=== PATIENT | male | born 1970 | race Two or more races ===

== ENCOUNTER 2021-12-07 11:26 | Emergency (ER) | payer MEDICAID ==
[~2021-12-07] VITALS: Ht 165.1 cm; Wt 56.7 kg
[2021-12-07 11:40] VITALS: BP 111/80
--- NOTE | 2021-12-07 11:46 | NUR ---
dr calixto at bedside for picc line removal.
--- NOTE | 2021-12-07 11:54 | NUR ---
called [facility], spoke to homero will transfer patient back to facility. vss.
--- NOTE | 2021-12-07 11:59 | NUR ---
transfered back to [facility]. stable condition.
== END 2021-12-07 12:01 | disposition home or self-care (01) ==
LOC: ER 11:29
DX: Z45.2 Encounter for adjustment and management of vascular access device (principal); E11.9 Type 2 diabetes mellitus without complications

== ENCOUNTER 2022-04-27 22:15 | Inpatient (IN) | payer MEDICAID ==
[~2022-04-27] VITALS: Ht 170.2 cm; Wt 54.9 kg
--- NOTE | 2022-04-27 22:25 | NUR ---
JASON FROM [facility] FOR DESATURATION AND TACHYCARDIA. PATIENT WITH TRACHE ATTACHED TO TBAR AT 5LPM SAT 92%. WITH GTUBE. PATIENT IS AAOX1. PLACED COMFORTABLY IN RM 8. VITALS CHECKED.
[2022-04-27] MEDS ORDERED: ONDANSETRON HCL/PF 4 MG/2 ML VIAL IVP ONE (22:30)
--- NOTE | 2022-04-27 22:30 | NUR ---
IV CANNULA G18 INSERTED ON LEFT FA. BLOOD DRAWN AND SENT TO LAB
--- NOTE | 2022-04-27 22:35 | NUR ---
IFC FR16 INSERTED. URINE SPECIMEN SENT TO LAB
--- NOTE | 2022-04-27 22:35 | NUR ---
EKG DONE AT BEDSIDE.
[2022-04-27] MEDS ORDERED: ACETAMINOPHEN 650 MG/SUPP.RECT RC ONE ×2 (22:37→23:00)
[2022-04-27] MEDS ORDERED: ONDANSETRON HCL/PF 4 MG/2 ML VIAL ONE (22:37)
--- NOTE | 2022-04-27 22:38 | NUR ---
COVID SWAB DONE AND SENT TO LAB
--- NOTE | 2022-04-27 22:46 | NUR ---
XRAY AT BEDSIDE
[2022-04-27] MEDS ORDERED: IV NS 0.9% 1,000 ML BAG IV ONE (23:00)
[2022-04-27 23:01] LABS: BASOPHILS % (AUTO) 0.2 % (0.0-2.0); HEMATOCRIT 35 % (39-51); HEMOGLOBIN 11.7 g/dL (13.5-17.5); LYMPHOCYTES # (AUTO) 0.6 K/uL (0.8-4.8); LYMPHOCYTES % (AUTO) 11.9 % (20.0-44.0); MEAN CORPUSCULAR HGB CONC 34 g/dl (31.0-36.0); MEAN CORPUSCULAR VOLUME 93 fL (80-96); MONOCYTES # (AUTO) 0.3 K/uL (0.1-1.30); MONOCYTES % (AUTO) 5.3 % (2.0-12.0); NEUTROPHILS % (AUTO) 82.6 % (43.0-81.0); PLATELET COUNT (AUTO) 351 K/uL (150-450); RED BLOOD CELL COUNT(AUTO) 3.72 MIL/uL (4.5-6.0); WHITE BLOOD COUNT (AUTO) 4.9 K/uL (4.3-11.0)
[2022-04-27 23:19] LABS: CALCIUM, SERUM 9.9 mg/dL (8.5-10.1); CARBON DIOXIDE 31 mmol/L (21-32); CHLORIDE 97 mmol/L (98-107); CREATININE 0.8 mg/dL (0.6-1.3); GLUCOSE 100 mg/dL (74-106); POTASSIUM 4.7 mmol/L (3.5-5.1); SODIUM SERUM 137 mmol/L (136-145); UREA NITROGEN, BLOOD 23 mg/dL (7-18)
--- NOTE | 2022-04-27 23:22 | NUR ---
LACTIC ACID 2.2
[2022-04-27 23:23] LABS: BILIRUBIN,URINE NEGATIVE (NEGATIVE); COLOR,URINE YELLOW (YELLOW); LEUKOCYTE ESTERASE ,URINE NEGATIVE (NEGATIVE); NITRITE, URINE NEGATIVE (NEGATIVE); PROTEIN,URINE NEGATIVE (NEGATIVE); UGLUCOSE NEGATIVE (NEGATIVE)
[2022-04-27] MEDS ORDERED: AZTREONAM 1 G VIAL ONE (23:59)
[2022-04-27] MEDS ORDERED: LEVOFLOXACIN 750 MG /D5W 150ML 150 ML IV ONE (23:59)
[2022-04-28] VITALS: BP 107/63
[2022-04-28] MEDS ORDERED: LEVOFLOXACIN 750 MG /D5W 150ML PIGGYBACK IV ONE
[2022-04-28] MEDS ORDERED: AZTREONAM 1 G in IV NS 0.9% 100 ML IV ONE ×2
--- NOTE | 2022-04-28 00:03 | NUR ---
REPORT GIVEN TO PRINCESS AMIN FOR FABY
[2022-04-28 00:12] LABS: ALANINE AMINOTRANSFERASE 22 U/L (12-78); ALBUMIN 2.6 g/dL (3.4-5.0); ALKALINE PHOSPHATASE 222 U/L (46-116); ASPARTATE AMINOTRANSFERASE 21 U/L (15-37); BILIRUBIN,DIRECT 0.2 mg/dL (0.0-0.2); BILIRUBIN,TOTAL 0.5 mg/dL (0.2-1.0); TOTAL PROTEIN, SERUM 8.6 g/dL (6.4-8.2)
--- NOTE | 2022-04-28 00:43 | NUR ---
TRANSFERRED PT TO 108
--- NOTE | 2022-04-28 00:45 | NUR ---
RN Initial Note Received report from HIGH SCHOOL ASSISTANT FOOTBALL COACH Saqib. Pt arrived to unit via gurney. Pt has eyes open, non-verbal, obtunded. Pt noted to have trach, currently on 4L oxygen, with O2sat 97%; no s/s of resp distress, no SOB, non-labored and equal breathing; appears comfortable. Pt attached to external monitor, currently ST with HR 109. Xiao draining clear and yellow urine; xiao intact and patent; no s/s of leaking noted. Pt noted to have redness on buttocks and wounds on right foot and heel and left heel. IV access LFA 18G intact and patent, flushes easily with no s/s of infiltration. Levofloxacin infusion started and will infuse for 90 minutes. Bed in lowest position, call light within reach, side rails up x3. Will initiate plan of care and continue to monitor throughout the night.
[2022-04-28] MEDS ORDERED: IPRATROPIUM NEB FS 0.5 MG/2.5 ML AMPUL.NEB NEB PRN (01:30)
[2022-04-28] MEDS ORDERED: CEFTRIAXONE 1 G in IV D5W 50 ML IV SCH (01:30)
[2022-04-28] MEDS ORDERED: ALBUTEROL FS 2.5 MG/3 ML VIAL.NEB NEB PRN (01:30)
[2022-04-28] MEDS ORDERED: AZITHROMYCIN 500 MG in IV D5W 250 ML IV SCH (02:30)
[2022-04-28] MEDS ORDERED: METO-295 GT (02:46)
[2022-04-28] MEDS ORDERED: CHLO473M2 MM (02:46)
[2022-04-28] MEDS ORDERED: NA P133E RC (02:46)
[2022-04-28] MEDS ORDERED: ALBU18HF2 INH (02:46)
[2022-04-28] MEDS ORDERED: METF-440 PO (02:46)
[2022-04-28] MEDS ORDERED: FAMO20TA8 PO (02:46)
[2022-04-28] MEDS ORDERED: INSU100V39 SQ (02:46)
[2022-04-28] MEDS ORDERED: PHEN100C4 GT (02:46)
[2022-04-28] MEDS ORDERED: NAPR-1009 GT (02:46)
[2022-04-28] MEDS ORDERED: VIT500LI GT (02:46)
[2022-04-28] MEDS ORDERED: VALP250S4 GT (02:46)
[2022-04-28] MEDS ORDERED: ACET-2605 GT (02:46)
[2022-04-28] MEDS ORDERED: FERR325T23 PO (02:46)
[2022-04-28] MEDS ORDERED: MULT9LIQ9 PO (02:46)
[2022-04-28] MEDS ORDERED: MAGN24002 PO (02:46)
[2022-04-28] MEDS ORDERED: ZINC1CAP3 PO (02:46)
[2022-04-28] MEDS ORDERED: APIX5TAB PO (02:46)
[2022-04-28] MEDS ORDERED: INSU100V7 SQ (02:46)
[2022-04-28] MEDS ORDERED: CLON0.1T GT (02:46)
[2022-04-28] MEDS ORDERED: ONDA-97 PO (02:46)
[2022-04-28] MEDS ORDERED: AMIN30LI2 GT (02:46)
[2022-04-28] MEDS ORDERED: ACET160E36 PO (02:46)
[2022-04-28] MEDS ORDERED: BISA10SU RC (02:46)
[2022-04-28] MEDS ORDERED: CEFTRIAXONE 1 G VIAL ONE (03:23)
[2022-04-28] MEDS ORDERED: AZITHROMYCIN 500 MG VIAL ONE (03:24)
[2022-04-28] MEDS: ALBUTEROL FS 2.5 MG/3 ML VIAL.NEB NEB SCH ×6 (03:30→23:28)
[2022-04-28] MEDS: IPRATROPIUM NEB FS 0.5 MG/2.5 ML AMPUL.NEB NEB SCH ×6 (03:30→23:28)
[2022-04-28 04:00] VITALS: BP 99/60
[2022-04-28] MEDS: IV D5/0.45 NACL 1,000 ML IV PRN (04:22)
[2022-04-28 07:14] LABS: BASOPHILS % (AUTO) 0.1 % (0.0-2.0); HEMATOCRIT 30 % (39-51); HEMOGLOBIN 9.8 g/dL (13.5-17.5); LYMPHOCYTES # (AUTO) 0.6 K/uL (0.8-4.8); LYMPHOCYTES % (AUTO) 8.6 % (20.0-44.0); MEAN CORPUSCULAR HGB CONC 33 g/dl (31.0-36.0); MEAN CORPUSCULAR VOLUME 96 fL (80-96); MONOCYTES # (AUTO) 0.8 K/uL (0.1-1.30); MONOCYTES % (AUTO) 10.7 % (2.0-12.0); NEUTROPHILS # (AUTO) 5.9 K/uL (1.8-8.9); NEUTROPHILS % (AUTO) 80.6 % (43.0-81.0); PLATELET COUNT (AUTO) 259 K/uL (150-450); WHITE BLOOD COUNT (AUTO) 7.4 K/uL (4.3-11.0)
--- NOTE | 2022-04-28 07:26 | NUR ---
flexible machining system machinist Closing Note Pt remains in bed obtunded, opens eyes, non-verbal. Pt remains on T-piece 4L oxygen with humidifier, O2sat 97%-100%; no s/s of resp distress, no SOB, non-labored and equal breathing. Pt attached to external monitor, currently ST with HR ranging from 108-120. Perez remains C/D/I/P, draining clear and yellow urine. Wound consult ordered for wounds on right and left heel and right foot; applied mepilex to wounds. IV access LFA 18G intact and patent, flushes easily with no s/s of infiltration.Infused Levofloxacin, azithromycin, and ceftriaxone throughout the night; also currently has D5 1/2 NS running at 70 ml/hr. Bed in lowest position, call light within reach, side rails up x3. Will endorse to dayshift nurse to continue care.
--- NOTE | 2022-04-28 07:30 | NUR ---
RN OPENING NOTE PATIENT IS IN BED, OBTUNDED, OPEN EYES TO TOUCH, AND NON VERBAL. WITH OXYGEN VIA T-PIECE AT 4 L/MIN, OXYGEN SATURATION AT 99%. SINUS TACHYCARDIA AT 103 BPM ON FIELD SALES CONSULTANT. WITH LEFT FOREARM GAUGE 18 IV LINE INFUSING WITH D5 1/2 NS AT 70 ML/HR, INTACT AND PATENT. NO NOTED INFILTRATION OR PHLEBITIS ON IV INSERTION SITE. WITH NOBLE CATHETER ATTACHED TO URINE BAG DRAINING TO A CLEAR, YELLOW COLORED URINE. BREATHING UNLABORED AND NOT IN ANY FORM OF DISTRESS. BED IS LOCKED IN LOWEST POSITION, 3 SIDE RAILS UP, CALL LIGHT WITHIN REACH. WILL CONTINUE TO MONITOR THROUGHOUT SHIFT.
[2022-04-28 07:46] LABS: BILIRUBIN,TOTAL 0.5 mg/dL (0.2-1.0); POTASSIUM 4.3 mmol/L (3.5-5.1); TOTAL PROTEIN, SERUM 7.3 g/dL (6.4-8.2)
[2022-04-28 07:53] LABS: THYROID STIMULATING HORMONE 12.9 uIU/mL (0.358-3.74)
[2022-04-28 08:00] VITALS: BP 109/64
[2022-04-28 08:10] LABS: CALCIUM, SERUM 9.1 mg/dL (8.5-10.1); CREATININE 0.7 mg/dL (0.6-1.3)
--- NOTE | 2022-04-28 08:22 | NUR ---
WOUND CARE CONSULT: REVIEWED CHART, NURSING DOCUMENTATION AND PHOTOS WHICH INDICATE WOUND/SCAR TO SACRAL AREA AND LOWER EXTREMITY WOUNDS, PRESENT ON ADMISSION. DR GONZALEZ AND DR STODDARD NOTIFIED OF SURGICAL AND DPM CONSULT REQUESTS. DISCUSSED SKIN PROTECTION WITH NURSING STAFF. MD IN AGREEMENT WITH PLAN OF CARE.
[2022-04-28] MEDS ORDERED: Z GUARD REMEDY 4 OZ OINT TP PRN (08:30)
[2022-04-28] MEDS: Z GUARD REMEDY 4 OZ OINT TP SCH (09:14)
[2022-04-28] MEDS ORDERED: ENOXAPARIN SODIUM 40 MG/0.4 ML DISP.SYRIN SQ SCH (10:00)
[2022-04-28] MEDS ORDERED: PIPERACILLIN /TAZOBACTAM 3.375 G in IV D5W 50 ML IV ONE (11:00)
[2022-04-28] MEDS ORDERED: BISACODYL SUPP (10 MG) 10 MG/SUPP.RECT SUPP.RECT RC PRN (11:00)
[2022-04-28] MEDS ORDERED: DEXTROSE 50%-WATER 50 ML DISP.SYRIN IV PRN (11:00)
[2022-04-28] MEDS ORDERED: NA PHOS,M-B/NA PHOS,DI-BA 1 EA ENEMA RC PRN (11:00)
[2022-04-28] MEDS ORDERED: APIXABAN 5 MG TABLET PO SCH (11:00)
[2022-04-28 12:00] VITALS: BP 110/67
[2022-04-28] MEDS: BLOOD SUGAR DIAGNOSTIC 1 EACH STRIP IN SCH ×3 (12:06→23:34)
[2022-04-28] MEDS: VALPROIC ACID 250 MG/5 ML UDC GT SCH ×2 (12:15→21:01)
[2022-04-28] MEDS: INSULIN GLARGINE, 100 UNIT/ML CARTRIDGE SQ SCH ×2 (12:15→21:11)
[2022-04-28] MEDS: PHENYTOIN EXTENDED RELEASE 100 MG CAPSULE PO SCH (12:16)
[2022-04-28] MEDS: METOCLOPRAMIDE HCL 10 MG TABLET GT SCH ×3 (12:16→23:36)
[2022-04-28] MEDS: VANCOMYCIN 1 GM in IV D5W 250 ML IV SCH ×2 (13:12→21:04)
[2022-04-28 16:00] VITALS: BP 104/63
[2022-04-28] MEDS: GLUCERNA 1.2 1,000 ML BOTTLE NG PRN (17:08)
[2022-04-28] MEDS: PIPERACILLIN /TAZOBACTAM 3.375 G in IV D5W 100 ML IV SCH (17:32)
[2022-04-28] MEDS: METFORMIN 500 MG TABLET PO SCH (17:33)
[2022-04-28] MEDS: INSULIN REGULAR, HUMAN 100 UNIT/ML 3 ML VIAL SQ PRN ×2 (17:37→23:36)
--- NOTE | 2022-04-28 18:39 | NUR ---
RN CLOSING NOTE PATIENT IS IN BED,ON MOREAU'S POSITION AND REMAINS OBTUNDED. WITH OXYGEN VIA T-PIECE AT 2L/MIN., OXYGEN SATURATION AT 97%. SINUS TACHYCARDIA AT 103 ON ETHYLENE PLANT OPERATOR. LEFT FOREARM IV LINE INTACT AND INFUSING WITH D5 1/2 NSS AT 70 ML/HR. WITH G-TUBE IN PLACE INFUSING WITH GLUCERNA 1.2 AT 15 CC/HR. PATIENT IS ABLE TO TOLERATE FEEDING AND WITH NO UNTOWARD REACTION NOTED. WITH NOBLE CATHETER ATTACHED TO URINE BAG DRAINING TO CLEAR YELLOW URINE. WOUND CARE ON RIGHT AND LEFT HEEL DONE PER WOUND CARE PROTOCOL AND COVERED WITH DRY DRESSING. PATIENT WAS MAINTAINED ON ASPIRATION PRECAUTION. PATIENT REMAINED STABLE THROUGHOUT SHIFT. BED IS LOCKED ON LOWEST POSITION, 3 SIDE RAILS UP, CALL LIGHT WITHIN REACH. WILL ENDORSE TO LCAC RADAR OPERATOR/NAVIGATOR NURSE.
--- NOTE | 2022-04-28 19:10 | NUR ---
RN NOTES RECEIVED REPORT FROM MORNING RN. PATIENT IN BED OBTUNDED OPENS EYES NO TRACKING. WITH IV ACCESS AT L WRIST #18 PATENT FLUSHES WELL CONNECTED TO CONTINUOS IV D5 1/2 NS @ 70CC/HR. WITH TRACH PORTEX # 7 CONNECTED TO T-PIECE AT 2 LPM NO SOB NO DISTRESS.WITH GT PATENT CONNECTED TO CONTINUOS FEEDING GLUCERNA 1.2 @ 15CC/HR TOLERATING WELL NO GASTRIC RESIDUAL NOTED AT THIS TIME. WITH NOBLE CATHETER CONNECTED TO URINE BAG DRAINING YELLOWISH URINE OUTPUT. ALL SAFETY MEASURES IN PLACE HOB ELEVATED. CALL LIGHT WITHIN REACH. WILL CLOSELY MONITOR THE PATIENT FOR ANY CHANGES.
[2022-04-28 20:00] VITALS: BP 107/65
--- NOTE | 2022-04-28 20:24 | NUR ---
RT neb tx not given due to pending pcr lab results
[2022-04-28] MEDS: CHLORHEXIDINE GLUCONATE 15 ML UDC MM SCH (21:01)
[2022-04-28] MEDS: APIXABAN 5 MG TABLET PO SCH (21:06)
[2022-04-29] VITALS: BP 119/83
--- NOTE | 2022-04-29 00:10 | NUR ---
RN NOTES BS 169 MG/DL DUE REGULAR INSULIN 3 UNITS GIVEN
[2022-04-29] MEDS: PIPERACILLIN /TAZOBACTAM 3.375 G in IV D5W 100 ML IV SCH ×3 (00:21→17:10)
[2022-04-29] MEDS: ALBUTEROL FS 2.5 MG/3 ML VIAL.NEB NEB SCH ×6 (03:30→23:53)
[2022-04-29] MEDS: IPRATROPIUM NEB FS 0.5 MG/2.5 ML AMPUL.NEB NEB SCH ×6 (03:30→23:52)
[2022-04-29] MEDS: IV D5/0.45 NACL 1,000 ML IV PRN ×2 (03:53→21:03)
[2022-04-29 04:00] VITALS: BP 99/60
[2022-04-29] MEDS: METOCLOPRAMIDE HCL 10 MG TABLET GT SCH ×4 (05:50→23:11)
[2022-04-29] MEDS: VALPROIC ACID 250 MG/5 ML UDC GT SCH ×3 (05:51→21:45)
[2022-04-29] MEDS: VANCOMYCIN 1 GM in IV D5W 250 ML IV SCH ×2 (05:52→12:59)
[2022-04-29] MEDS: BLOOD SUGAR DIAGNOSTIC 1 EACH STRIP IN SCH ×4 (06:16→23:17)
--- NOTE | 2022-04-29 06:17 | NUR ---
RN NOTES BS 33MG/DL DEXTROSE INJ 50% GIVEN ORDERED. WILL CONTINU TO MONITOR THE PATIENT
--- NOTE | 2022-04-29 06:47 | NUR ---
RN NOTES REPEAT BLOOD SUGAR 173.
--- NOTE | 2022-04-29 06:51 | NUR ---
RN NOTE PATIENT IS IN BED,ON MOREAU'S POSITION AND REMAINS OBTUNDED. WITH OXYGEN VIA T-PIECE AT 2L/MIN., OXYGEN SATURATION AT 97%. SINUS RHYTHM AT 89 ON MANUAL WRITER. LEFT FOREARM IV LINE INTACT AND INFUSING WITH D5 1/2 NSS AT 70 ML/HR. WITH G-TUBE IN PLACE INFUSING WITH GLUCERNA 1.2 AT 45 CC/HR. PATIENT IS ABLE TO TOLERATE FEEDING AND WITH NO UNTOWARD REACTION NOTED. WITH NOBLE CATHETER ATTACHED TO URINE BAG DRAINING TO CLEAR YELLOW URINE. PATIENT WAS MAINTAINED ON ASPIRATION PRECAUTION. PATIENT REMAINED STABLE
[2022-04-29 07:24] LABS: CREATININE 0.7 mg/dL (0.6-1.3); POTASSIUM 3.6 mmol/L (3.5-5.1)
[2022-04-29 07:25] LABS: ALBUMIN 2.2 g/dL (3.4-5.0); BILIRUBIN,TOTAL 0.3 mg/dL (0.2-1.0); MAGNESIUM 1.8 mg/dL (1.8-2.4); PHOSPHORUS 2.5 mg/dL (2.5-4.9); TOTAL PROTEIN, SERUM 7.5 g/dL (6.4-8.2)
[2022-04-29 07:26] LABS: BASOPHILS % (AUTO) 0.3 % (0.0-2.0); EOSINOPHILS % (AUTO) 1.3 % (0.0-6.0); HEMATOCRIT 27 % (39-51); HEMOGLOBIN 9.1 g/dL (13.5-17.5); LYMPHOCYTES # (AUTO) 1.4 K/uL (0.8-4.8); LYMPHOCYTES % (AUTO) 17.4 % (20.0-44.0); MEAN CORPUSCULAR HGB CONC 34 g/dl (31.0-36.0); MEAN CORPUSCULAR VOLUME 95 fL (80-96); MONOCYTES # (AUTO) 0.6 K/uL (0.1-1.30); MONOCYTES % (AUTO) 7.6 % (2.0-12.0); NEUTROPHILS # (AUTO) 6.1 K/uL (1.8-8.9); NEUTROPHILS % (AUTO) 73.4 % (43.0-81.0); PLATELET COUNT (AUTO) 242 K/uL (150-450); RED BLOOD CELL COUNT(AUTO) 2.82 MIL/uL (4.5-6.0); WHITE BLOOD COUNT (AUTO) 8.3 K/uL (4.3-11.0)
--- NOTE | 2022-04-29 07:30 | NUR ---
RN OPENING NOTES RECEIVED PATIENT IN BED, OBTUNDED WITH T-PIECE IN PLACE. TOLERATING OXYGEN VIA T-PIECE AT 2LPM WITH OXYGEN SATURATION AT 98%. TELE MONITOR READING SR 90 BPM AT THIS TIME. LEFT FA G#18 INTACT WITH D5 1/2 NS AT 70 ML/HR. G-TUBE IN PLACE WITH GLUCERNA 1.2 RUNNING AT 45 ML/HR, GOAL TO BE 60ML/HR. TOLERATING FEEDING WITH MINIMAL RESIDUAL NOTED. NOBLE CATHETER IN PLACE WITH CLEAR YELLOW URINE DRAINING. ASPIRATION AND SAFETY PRECAUTIONS IN PLACE. WILL CONTINUE TO MONITOR PATIENT
[2022-04-29] MEDS: FERROUS SULFATE (325 MG) 325 MG/TAB TABLET PO SCH (09:41)
[2022-04-29] MEDS: PHENYTOIN EXTENDED RELEASE 100 MG CAPSULE PO SCH (09:41)
[2022-04-29] MEDS: METFORMIN 500 MG TABLET PO SCH ×2 (09:41→17:10)
[2022-04-29] MEDS: CHLORHEXIDINE GLUCONATE 15 ML UDC MM SCH ×2 (09:41→21:31)
[2022-04-29] MEDS: Z GUARD REMEDY 4 OZ OINT TP SCH (09:42)
[2022-04-29] MEDS: APIXABAN 5 MG TABLET PO SCH ×2 (09:45→21:31)
[2022-04-29] MEDS: INSULIN GLARGINE, 100 UNIT/ML CARTRIDGE SQ SCH ×2 (09:58→21:44)
--- NOTE | 2022-04-29 12:59 | NUR ---
RN NOTES VANCO TROUGH DRAWN TODAY, RESULTED 27. CALLED PHARMACY TO ADVISE. HOLDING VANCO PER LEVEL ORDERED.
[2022-04-29] MEDS: INSULIN REGULAR, HUMAN 100 UNIT/ML 3 ML VIAL SQ PRN ×3 (14:16→23:18)
[2022-04-29 16:00] VITALS: BP 99/60
--- NOTE | 2022-04-29 18:33 | NUR ---
RN CLOSING NOTES PATIENT RESTING IN BED, AWAKE, NON-VERBAL. ON COOL AEROSOL 5L OF O2 @ 28% FiO2, TOLERATING WILL WITH OX SAT 99%. NO DISPLAYED SIGNS OF DISTRESS NOTED. NOBLE CATH IN PLACE WITH 675 ML OF CLEAR YELLOW URINE OUTPUT. L WRIST G#18 INTACT AND PATENT WITH D5 1/2 NS RUNNING @ 70ML/HR. G-TUBE INTACT WITH GLUCERNA 1.2 RUNNING @ 60ML/HR, TOLERATING WELL. SAFETY AND ASPIRATION PRECAUTIONS IN PLACE. WILL ENDORSE TO THE GARBAGE COLLECTOR NURSE FOR FABY
--- NOTE | 2022-04-29 19:10 | NUR ---
RN NOTES RECEIVED PT FOR CONTINUITY OF CARE. PATIENT A/OX0 ; NON VERBAL IN NO S/SX OF ACUTE DISTRESS AT THIS TIME; CURRENTLY ON COOL AEROSOL 5L OF 02 VIA T-PIECE; WITH 02 SAT >95% AT THIS TIME. IV ACCESS PATENT AND INTACT. WITH IV FLUID RUNNING ORDERED. ALSO HAS A RUNNING TUBE FEEDING PRESCRIBED NO SIGNIFICANT RESIDUAL AT THIS TIME. WILL ENSURE SAFETY MEASURES WITHIN THE SHIFT. PATIENT BED ALARM IS ON. HEAD OF BED ELEVATED. BED IS LOCKED, IN LOWEST POSITION AND SIDE RAILS UP. CALL LIGHT WITHIN REACH OF THE PATIENT. APPLICABLE ISOLATION PRECAUTIONS IN PLACE. WILL CONTINUE TO MONITOR AND REASSESS FOR ANY CHANGES AND WILL CARRY OUT ANY ONGOING AND ACTIVE MD ORDER.
[2022-04-29 20:00] VITALS: BP 110/65
[2022-04-29] MEDS: VANCOMYCIN 0.75 GM in IV D5W 250 ML IV SCH (21:30)
[2022-04-30] VITALS: BP 150/83
[2022-04-30] MEDS: PIPERACILLIN /TAZOBACTAM 3.375 G in IV D5W 100 ML IV SCH ×3 (00:55→16:13)
[2022-04-30] MEDS: GLUCERNA 1.2 1,000 ML BOTTLE NG PRN ×2 (00:56→23:47)
--- NOTE | 2022-04-30 02:25 | NUR ---
RN NOTES REPORT GIVEN TO ELOISA LUQUE FOR FABY. ALL PERTINENT PT & MEDICAL INFO GIVEN.
--- NOTE | 2022-04-30 02:25 | NUR ---
RN NOTES RECEIVED PT FOR CONTINUITY OF CARE. PATIENT A/OX0 ; NON VERBAL WITH NO S/SX OF ACUTE DISTRESS NOTED AT THIS TIME; ON COOL AEROSOL 5L OF 02 VIA T-PIECE; TOLERATING WELL WITH 02 SAT OF 97%. IV ACCESS PATENT AND INTACT. WITH IV FLUID RUNNING ORDERED. ALSO HAS A RUNNING TUBE FEEDING PRESCRIBED, TOLERATING WELL. ALL SAFETY MEASURES IN PLACE: PATIENT BED ALARM IS ON. HEAD OF BED ELEVATED. BED IS LOCKED, IN LOWEST POSITION AND SIDE RAILS UP. CALL LIGHT WITHIN REACH. WILL CONTINUE TO MONITOR AND REASSESS FOR ANY CHANGES.
[2022-04-30] MEDS: IPRATROPIUM NEB FS 0.5 MG/2.5 ML AMPUL.NEB NEB SCH ×6 (03:31→23:57)
[2022-04-30] MEDS: ALBUTEROL FS 2.5 MG/3 ML VIAL.NEB NEB SCH ×6 (03:31→23:57)
[2022-04-30 04:00] VITALS: BP 159/92
[2022-04-30] MEDS: VANCOMYCIN 0.75 GM in IV D5W 250 ML IV SCH (04:31)
[2022-04-30] MEDS: VALPROIC ACID 250 MG/5 ML UDC GT SCH ×3 (04:32→21:24)
[2022-04-30] MEDS: METOCLOPRAMIDE HCL 10 MG TABLET GT SCH ×3 (05:10→17:15)
[2022-04-30] MEDS: BLOOD SUGAR DIAGNOSTIC 1 EACH STRIP IN SCH ×4 (05:42→23:47)
[2022-04-30] MEDS: INSULIN REGULAR, HUMAN 100 UNIT/ML 3 ML VIAL SQ PRN ×4 (05:43→23:49)
--- NOTE | 2022-04-30 06:48 | NUR ---
CHARCOAL KILN BURNER CLOSING NOTES PATIENT RESTING IN BED, AWAKE, NON-VERBAL. ON COOL AEROSOL 5L OF O2 @ 28% FiO2, TOLERATING WELL WITH O2 SAT OF 99%. NO SIGNS OF ACUTE DISTRESS NOTED. NOBLE CATH IN PLACE WITH 1500 ML OF CLEAR YELLOW URINE OUTPUT NOTED. L WRIST G#18 INTACT AND PATENT WITH D5 1/2 NS RUNNING @ 70ML/HR. G-TUBE INTACT WITH GLUCERNA 1.2 RUNNING @ 60ML/HR, TOLERATING WELL. ALL SAFETY MEASURES IMPLEMENTED: BED LOCKED IN LOWEST POSITION. BED ALARM ON. CALL LIGHT WITHIN REACH. WILL ENDORSE TO AM SHIFT NURSE FOR FABY.
[2022-04-30 06:53] LABS: BASOPHILS % (AUTO) 0.3 % (0.0-2.0); EOSINOPHILS % (AUTO) 0.8 % (0.0-6.0); HEMATOCRIT 27 % (39-51); HEMOGLOBIN 9.2 g/dL (13.5-17.5); LYMPHOCYTES % (AUTO) 15.9 % (20.0-44.0); MEAN CORPUSCULAR HGB CONC 34 g/dl (31.0-36.0); MEAN CORPUSCULAR VOLUME 93 fL (80-96); MONOCYTES # (AUTO) 0.5 K/uL (0.1-1.30); MONOCYTES % (AUTO) 8.3 % (2.0-12.0); NEUTROPHILS # (AUTO) 4.9 K/uL (1.8-8.9); NEUTROPHILS % (AUTO) 74.7 % (43.0-81.0); PLATELET COUNT (AUTO) 244 K/uL (150-450); RED BLOOD CELL COUNT(AUTO) 2.92 MIL/uL (4.5-6.0); WHITE BLOOD COUNT (AUTO) 6.6 K/uL (4.3-11.0)
[2022-04-30 07:09] LABS: BILIRUBIN,TOTAL 0.1 mg/dL (0.2-1.0); CALCIUM, SERUM 8.8 mg/dL (8.5-10.1); CREATININE 0.6 mg/dL (0.6-1.3); MAGNESIUM 1.7 mg/dL (1.8-2.4); PHOSPHORUS 2.5 mg/dL (2.5-4.9); POTASSIUM 3.6 mmol/L (3.5-5.1)
--- NOTE | 2022-04-30 07:30 | NUR ---
RN OPENING NOTE PATIENT IS IN BED ON MOREAU'S POSITION, ASLEEP, OPENS EYES TO TOUCH AND LIGHT PAIN, NON VERBAL. WITH OXYGEN VIA T-PIECE AT 5L. OXYGEN SATURATION AT 99%. SINUS RHYTHM ON RATE AND COST ANALYST. WITH G-TUBE INFUSING WITH GLUCERNA AT 60 CC/HR. WITH LEFT WRIST IV INFUSING WITH D5 1/2 NS AT 70 CC/HR. WITH RIGHT AND LEFT HEEL WOUND COVERED WITH DRY INTACT DRESSING. NOT IN ANY FORM OF DISTRESS. BED IS LOCKED IN LOWEST POSITION, 3 SIDE RAILS UP, CALL LIGHT WITHIN REACH. WILL CONTINUE TO MONITOR THROUGHOUT SHIFT.
[2022-04-30 08:00] VITALS: BP 125/74
[2022-04-30] MEDS: VANCOMYCIN 1 GM in IV D5W 250ml IV SCH ×2 (09:32→20:34)
[2022-04-30] MEDS: CHLORHEXIDINE GLUCONATE 15 ML UDC MM SCH ×2 (09:43→21:23)
[2022-04-30] MEDS: FERROUS SULFATE (325 MG) 325 MG/TAB TABLET PO SCH (09:44)
[2022-04-30] MEDS: METFORMIN 500 MG TABLET PO SCH ×2 (09:44→17:16)
[2022-04-30] MEDS: PHENYTOIN EXTENDED RELEASE 100 MG CAPSULE PO SCH (09:44)
[2022-04-30] MEDS: APIXABAN 5 MG TABLET PO SCH ×2 (09:45→21:26)
[2022-04-30] MEDS: Z GUARD REMEDY 4 OZ OINT TP SCH (09:46)
[2022-04-30] MEDS: Magnesium 1GM/D5W 100ML PREMIX 100 ML IV SCH ×2 (10:07→11:21)
[2022-04-30] MEDS: INSULIN GLARGINE, 100 UNIT/ML CARTRIDGE SQ SCH ×2 (10:43→21:35)
[2022-04-30 12:03] VITALS: BP 132/69
[2022-04-30] MEDS: IV D5/0.45 NACL 1,000 ML IV PRN (15:55)
[2022-04-30 16:22] VITALS: BP 128/75
--- NOTE | 2022-04-30 19:11 | NUR ---
RN CLOSING NOTE PATIENT IS IN BED ON SEMI MOREAU'S POSITION. PATIENT REMAINED STABLE THROUGHOUT SHIFT. KEPT COMFORTABLE AND CLEAN. NOT IN ANY FORM OF DISTRESS. ALL HOSPITAL PRECAUTIONS IN PLACE. BED LOCKED IN LOWEST POSITION, 3 SIDE RAILS UP, CALL LIGHT WITHIN REACH. WILL ENDORSE TO PROPERTY UTILIZATION OFFICER NURSE.
[2022-04-30 20:00] VITALS: BP 136/77
--- NOTE | 2022-04-30 23:36 | NUR ---
RN NOTES RECEIVED REPORT FROM MORNING RN. PATIENT IN BED OBTUNDED OPENS EYES NO TRACKING. WITH IV ACCESS AT R UA MIDLINE #18 PATENT FLUSHES WELL CONNECTED TO CONTINUOS IV D5 1/2 NS @ 70CC/HR. WITH TRACH PORTEX # 7 CONNECTED TO T-PIECE AT 2 LPM NO SOB NO DISTRESS.WITH GT PATENT CONNECTED TO CONTINUOS FEEDING GLUCERNA 1.2 @ 60CC/HR TOLERATING WELL NO GASTRIC RESIDUAL NOTED AT THIS TIME. WITH NOBLE CATHETER CONNECTED TO URINE BAG DRAINING YELLOWISH URINE OUTPUT. ALL SAFETY MEASURES IN PLACE HOB ELEVATED. CALL LIGHT WITHIN REACH. WILL CLOSELY MONITOR THE PATIENT FOR ANY CHANGES.
[2022-05-01] VITALS: BP 121/75
[2022-05-01] MEDS: METOCLOPRAMIDE HCL 10 MG TABLET GT SCH ×5 (00:05→23:03)
[2022-05-01] MEDS: PIPERACILLIN /TAZOBACTAM 3.375 G in IV D5W 100 ML IV SCH ×3 (01:08→17:27)
[2022-05-01 04:00] VITALS: BP 140/78
[2022-05-01] MEDS: ALBUTEROL FS 2.5 MG/3 ML VIAL.NEB NEB SCH ×6 (04:12→23:51)
[2022-05-01] MEDS: IPRATROPIUM NEB FS 0.5 MG/2.5 ML AMPUL.NEB NEB SCH ×6 (04:12→23:51)
[2022-05-01] MEDS: VALPROIC ACID 250 MG/5 ML UDC GT SCH ×3 (05:58→21:21)
[2022-05-01] MEDS: IV D5/0.45 NACL 1,000 ML IV PRN (05:59)
[2022-05-01] MEDS: BLOOD SUGAR DIAGNOSTIC 1 EACH STRIP IN SCH ×4 (06:12→23:59)
[2022-05-01 06:26] LABS: BASOPHILS % (AUTO) 0.1 % (0.0-2.0); EOSINOPHILS % (AUTO) 0.9 % (0.0-6.0); HEMATOCRIT 27 % (39-51); LYMPHOCYTES # (AUTO) 1.1 K/uL (0.8-4.8); LYMPHOCYTES % (AUTO) 16.5 % (20.0-44.0); MEAN CORPUSCULAR HGB CONC 34 g/dl (31.0-36.0); MEAN CORPUSCULAR VOLUME 93 fL (80-96); MONOCYTES # (AUTO) 0.6 K/uL (0.1-1.30); MONOCYTES % (AUTO) 9.7 % (2.0-12.0); NEUTROPHILS # (AUTO) 4.8 K/uL (1.8-8.9); NEUTROPHILS % (AUTO) 72.8 % (43.0-81.0); PLATELET COUNT (AUTO) 245 K/uL (150-450); RED BLOOD CELL COUNT(AUTO) 2.85 MIL/uL (4.5-6.0); WHITE BLOOD COUNT (AUTO) 6.5 K/uL (4.3-11.0)
--- NOTE | 2022-05-01 06:45 | NUR ---
RN NOTE PATIENT IS IN BED,ON MOREAU'S POSITION AND REMAINS OBTUNDED. WITH OXYGEN VIA T-PIECE AT 2L/MIN., OXYGEN SATURATION AT 97%. SINUS RHYTHM AT 89 ON PIPE COVERING MOLDER. LEFT FOREARM IV LINE INTACT AND INFUSING WITH D5 1/2 NSS AT 70 ML/HR. WITH G-TUBE IN PLACE INFUSING WITH GLUCERNA 1.2 AT 45 CC/HR. PATIENT IS ABLE TO TOLERATE FEEDING AND WITH NO UNTOWARD REACTION NOTED. WITH NOBLE CATHETER ATTACHED TO URINE BAG DRAINING TO CLEAR YELLOW URINE. PATIENT WAS MAINTAINED ON ASPIRATION PRECAUTION. PATIENT REMAINED STABLE
[2022-05-01 07:21] LABS: ALBUMIN 1.9 g/dL (3.4-5.0); BILIRUBIN,TOTAL 0.2 mg/dL (0.2-1.0); CALCIUM, SERUM 8.8 mg/dL (8.5-10.1); CREATININE 0.5 mg/dL (0.6-1.3); MAGNESIUM 1.9 mg/dL (1.8-2.4); POTASSIUM 3.8 mmol/L (3.5-5.1); TOTAL PROTEIN, SERUM 6.9 g/dL (6.4-8.2)
--- NOTE | 2022-05-01 07:30 | NUR ---
RN OPENING NOTE PATIENT IS IN BED AWAKE, OBTUNDED, NON VERBAL. WITH O2 VIA T-PIECE AT 5L/MIN, O2 SATURATION AT 99%. SINUS RHYTHM ON ASSOCIATE WEB DEVELOPER. WITH PEG TUBE INTACT AND INFUSING WITH GLUCERNA AT 60 ML/HR. WITH RIGHT UPPER ARM MIDLINE GAUGE 18 INFUSING WITH D5 1/2 NS AT 70 ML/HR. BREATHING UNLABORED AND NOT IN ANY FORM OF DISTRESS. BED IS LOCKED IN LOWEST POSITION, 3 SIDE RAILS UP, CALL LIGHT WITHIN REACH. WILL CONTINUE TO MONITOR THROUGHOUT SHIFT.
[2022-05-01 08:00] VITALS: BP 149/62
[2022-05-01] MEDS: VANCOMYCIN 1 GM in IV D5W 250ml IV SCH ×2 (08:19→20:28)
[2022-05-01] MEDS: Z GUARD REMEDY 4 OZ OINT TP SCH (09:00)
[2022-05-01] MEDS: METFORMIN 500 MG TABLET PO SCH ×2 (09:33→17:29)
[2022-05-01] MEDS: PHENYTOIN EXTENDED RELEASE 100 MG CAPSULE PO SCH (09:33)
[2022-05-01] MEDS: FERROUS SULFATE (325 MG) 325 MG/TAB TABLET PO SCH (09:36)
[2022-05-01] MEDS: APIXABAN 5 MG TABLET PO SCH ×2 (09:37→21:23)
[2022-05-01] MEDS: CHLORHEXIDINE GLUCONATE 15 ML UDC MM SCH ×2 (09:37→21:20)
[2022-05-01] MEDS: INSULIN GLARGINE, 100 UNIT/ML CARTRIDGE SQ SCH ×2 (10:14→23:12)
[2022-05-01 12:00] VITALS: BP 142/78
[2022-05-01] MEDS: INSULIN REGULAR, HUMAN 100 UNIT/ML 3 ML VIAL SQ PRN ×3 (13:13→23:13)
[2022-05-01 16:00] VITALS: BP 123/81
--- NOTE | 2022-05-01 18:55 | NUR ---
RN CLOSING NOTE PATIENT IS IN BED ASLEEP, WITH OXYGEN VIA T-PIECE AT 5L/MIN. WITH 99% O2 SATURATION. PATIENT REMAINED STABLE THROUGHOUT SHIFT. RIGHT UPPER ARM MIDLINE REMAINS INTACT AND PATENT. NOBLE CATHETER INTACT. PEG TUBE INTACT AND PATENT. KEPT COMFORTABLE AND CLEAN. ALL HOSPITAL PRECAUTIONS IN PLACE. BED IS LOCKED IN LOWEST POSITION, 3 SIDE RAILS UP, CALL LIGHT WITHIN REACH. WILL ENDORSE TO PERSONAL COMPUTER SPECIALIST NURSE.
--- NOTE | 2022-05-01 19:26 | NUR ---
COLLAR TAILOR OPENING NOTE RECEIVED PATIENT IN BED OBTUNDED, NON VERBAL. WITH O2 VIA T-PIECE AT 5L/MIN, FIO2 28% TOLERATING WELL, BREATHING EVEN AND UNLABORED. NO S/SX OF DISTRESS OR DISCOMFORT THIS TIME, WITH RIGHT UPPER ARM MIDLINE GAUGE 18 INFUSING WITH D5 1/2 NS AT 70 ML/HR AND L WRIST SALINE LOCK INTACT, PATENT, AND INFUSING WELL. WITH NOBLE CATHETER DRAINING TO GRAVITY WITH YELLOWISH COLORED URINE, CALL LIGHT WITHIN REACH. BED LOCKED AND IN LOWEST POSITION, 3 SIDE RAILS UP, WILL CONTINUE TO MONITOR THROUGHOUT SHIFT.
[2022-05-01 20:00] VITALS: BP 142/83
[2022-05-01] MEDS: GLUCERNA 1.2 1,000 ML BOTTLE NG PRN (20:28)
[2022-05-02] VITALS: BP 146/79
--- NOTE | 2022-05-02 01:33 | NUR ---
RN NOTE NOTED WITH LOW GRADE FEVER AT 100.8, COOLING MEASURES DONE RECHECKED NOW AT 99.2, WILL CONTINUE TO MONITOR.
[2022-05-02] MEDS: ALBUTEROL FS 2.5 MG/3 ML VIAL.NEB NEB SCH ×4 (03:27→14:33)
[2022-05-02] MEDS: IPRATROPIUM NEB FS 0.5 MG/2.5 ML AMPUL.NEB NEB SCH ×4 (03:27→14:33)
[2022-05-02 04:00] VITALS: BP 153/83
[2022-05-02] MEDS: VALPROIC ACID 250 MG/5 ML UDC GT SCH ×2 (05:00→12:21)
[2022-05-02] MEDS: BLOOD SUGAR DIAGNOSTIC 1 EACH STRIP IN SCH ×2 (05:00→12:04)
[2022-05-02] MEDS: METOCLOPRAMIDE HCL 10 MG TABLET GT SCH ×2 (05:00→11:57)
[2022-05-02] MEDS: INSULIN REGULAR, HUMAN 100 UNIT/ML 3 ML VIAL SQ PRN ×2 (05:02→12:04)
--- NOTE | 2022-05-02 06:55 | NUR ---
DOUGH SCALER AND MIXER CLOSING NOTE PT ON BED SLEEPING BUT EASILY AROUSABLE TO TOUCH AND VOICE, PT IS OBTUNDED, HAS IV ACCESS ON MIKE MIDLINE AND L WRIST. INTACT, PATENT, AND FLUSHES WELL. ON T-PIECE 5L, FIO2 28%, TOLERATING WELL WITH O2 SAT OF 97%. NO SOB NOTED. NO S/SX OF ACUTE DISTRESS NOTED. ON GT FEEDING AT 60 CC/HR, TOLERATING WELL, ON TELEMONITORING CURRENTLY READING 84 BPM, ALL DUE MEDS GIVEN ORDERED, KEPT DRY AND CLEAN, ALL NEEDS ATTENDED TO. ALL SAFETY MEASURES IMPLEMENTED. BED IN LOWEST POSITION, LOCKED IN PLACE. CALL LIGHT WITHIN REACH. WILL ENDORSE TO AM SHIFT NURSE FOR FABY.
--- NOTE | 2022-05-02 07:21 | NUR ---
SCREED OPERATOR OPENING NOTE RECEIVED PATIENT IN BED OBTUNDED, NON VERBAL. WITH O2 VIA T-PIECE AT 5L/MIN, FIO2 28% TOLERATING WELL, BREATHING EVEN AND UNLABORED. NO S/SX OF DISTRESS OR DISCOMFORT THIS TIME, WITH RIGHT UPPER ARM MIDLINE GAUGE 18 INFUSING WITH D5 1/2 NS AT 70 ML/HR AND L WRIST SALINE LOCK INTACT, PATENT, AND INFUSING WELL. WITH NOBLE CATHETER DRAINING TO GRAVITY WITH YELLOWISH COLORED URINE, CALL LIGHT WITHIN REACH. BED LOCKED AND IN LOWEST POSITION, 3 SIDE RAILS UP.
[2022-05-02 07:44] LABS: CREATININE 0.6 mg/dL (0.6-1.3); POTASSIUM 4.1 mmol/L (3.5-5.1)
[2022-05-02] MEDS: VANCOMYCIN 1 GM in IV D5W 250ml IV SCH (07:55)
[2022-05-02 08:00] VITALS: BP 153/78
[2022-05-02] MEDS: PHENYTOIN EXTENDED RELEASE 100 MG CAPSULE PO SCH (08:48)
[2022-05-02] MEDS: FERROUS SULFATE (325 MG) 325 MG/TAB TABLET PO SCH (08:48)
[2022-05-02] MEDS: PIPERACILLIN /TAZOBACTAM 3.375 G in IV D5W 100 ML IV SCH ×3 (08:48)
[2022-05-02] MEDS: METFORMIN 500 MG TABLET PO SCH (08:48)
[2022-05-02] MEDS: CHLORHEXIDINE GLUCONATE 15 ML UDC MM SCH (08:48)
[2022-05-02] MEDS: APIXABAN 5 MG TABLET PO SCH (08:49)
[2022-05-02] MEDS: Z GUARD REMEDY 4 OZ OINT TP SCH (08:52)
[2022-05-02] MEDS: INSULIN GLARGINE, 100 UNIT/ML CARTRIDGE SQ SCH (08:52)
[2022-05-02 11:51] LABS: ABG BASE EXCESS 4.3 mmol/L; ABG OXYGEN SATURATION 97.8 % (92.0-98.5); ABG PCO2 36.2 mmHg (35.0-45.0); ABG PO2 106.4 mmHg (75.0-100.0); AaDO2 50.5 mmHg; COHb 0.2 % (0.5-1.5); MetHb 0.1 % (0.0-1.5); O2Hb 97.5 % (94.0-97.0); SITE, ABG Left Radial; VENT MODE, BG CA 28 %
[2022-05-02 12:00] VITALS: BP 142/75
--- NOTE | 2022-05-02 14:20 | NUR ---
RN NOTE REPORT GIVEN TO SUNNY FROM [facility] PATIENT IS TO BE PICKED UP AT 1500.
--- NOTE | 2022-05-02 15:57 | NUR ---
RN NOTE DISCHARGE/TRANSFER INSTRUCTION REPORTED TO SUNNY. PT DISCHARGED WITH PRESCRIPTIONS AND INSTRUCTIONS. MIDLINE, TELEMETRY, F/C DISCONTINUED INTACT. PT TRANSFERRED TO [facility].
== END 2022-05-02 15:38 | DRG 720 ==
LOC: ER 22:18 → TELE1 04-28 00:15
PROC: 05HB33Z Insertion of Infusion Device into Right Basilic Vein, Percutaneous Approach (ICD-10-PCS; principal; 2022-04-30)
DX: A41.9 Sepsis, unspecified organism (principal); J69.0 Pneumonitis due to inhalation of food and vomit; G93.49 Other encephalopathy; J96.11 Chronic respiratory failure with hypoxia; E44.0 Moderate protein-calorie malnutrition; E11.51 Type 2 diabetes mellitus with diabetic peripheral angiopathy without gangrene; Z93.0 Tracheostomy status; K59.00 Constipation, unspecified; Z20.822 Contact with and (suspected) exposure to COVID-19; R13.10 Dysphagia, unspecified; Z93.1 Gastrostomy status; Z86.711 Personal history of pulmonary embolism; E03.9 Hypothyroidism, unspecified; D64.9 Anemia, unspecified; Z79.84 Long term (current) use of oral hypoglycemic drugs; Z79.4 Long term (current) use of insulin; Z79.01 Long term (current) use of anticoagulants; Z79.51 Long term (current) use of inhaled steroids; Z79.899 Other long term (current) drug therapy; I70.0 Atherosclerosis of aorta; K21.9 Gastro-esophageal reflux disease without esophagitis; R74.01 Elevation of levels of liver transaminase levels; M62.562 Muscle wasting and atrophy, not elsewhere classified, left lower leg; M62.561 Muscle wasting and atrophy, not elsewhere classified, right lower leg; L97.429 Non-pressure chronic ulcer of left heel and midfoot with unspecified severity; L97.419 Non-pressure chronic ulcer of right heel and midfoot with unspecified severity; L97.519 Non-pressure chronic ulcer of other part of right foot with unspecified severity
CPT/HCPCS: 31720; 36410; 36415; 36600; 71045-TC; 76700-TC; 80048-TC; 80053-TC; 80061-TC; 80076-TC; 80164-TC; 80185-TC; 80202-TC; 82803-TC; 82947-TC; 82962-TC; 83605-TC; 83735-TC; 83880; 84100-TC; 84443-TC; 84484-TC; 85025-TC; 85730-TC; 87040-TC; 87081-TC; 93307-TC; 94640-TC; 94799-TC; A6253; C9803; G0378; J0456; J0696; J1650; J1815; J1956; J2405; J2543; J3370; J3475; J3490; J7030; J7050; J7060; J8597; U0003

== ENCOUNTER 2023-01-18 11:57 | Inpatient (IN) | payer MEDICAID, OTHER ==
[~2023-01-18] VITALS: Ht 170.2 cm; Wt 68.9 kg
[~2023-01-18 11:57] MED LIST: ACET-2605 GT; ACET160E36 GT; ALBU18HF2 INH; AMIN30LI2 GT; APIX5TAB GT; BISA10SU RC; CHLO473M2 MM; CLON0.1T GT; FAMO20TA8 PO; FERR325T23 PO; INSU100V39 SQ; INSU100V7 SQ; MAGN24002 PO; METF-440 PO; METO-295 GT; MULT9LIQ9 GT; NA P133E RC; NAPR-1009 GT; ONDA-97 PO; PHEN100C4 GT; VALP250S4 GT; VIT500LI GT; ZINC1CAP3 GT
[2023-01-18 13:08] LABS: BASOPHILS % (AUTO) 0.6 % (0.0-2.0); EOSINOPHILS % (AUTO) 4.6 % (0.0-6.0); HEMATOCRIT 24 % (39-51); HEMOGLOBIN 7.8 g/dL (13.5-17.5); LYMPHOCYTES # (AUTO) 0.9 K/uL (0.8-4.8); LYMPHOCYTES % (AUTO) 10.8 % (20.0-44.0); MEAN CORPUSCULAR HGB CONC 33 g/dl (31.0-36.0); MEAN CORPUSCULAR VOLUME 101 fL (80-96); MONOCYTES # (AUTO) 0.6 K/uL (0.1-1.30); MONOCYTES % (AUTO) 7.4 % (2.0-12.0); NEUTROPHILS # (AUTO) 6.6 K/uL (1.8-8.9); NEUTROPHILS % (AUTO) 76.6 % (43.0-81.0); PLATELET COUNT (AUTO) 650 K/uL (150-450); RED BLOOD CELL COUNT(AUTO) 2.36 MIL/uL (4.5-6.0); WHITE BLOOD COUNT (AUTO) 8.6 K/uL (4.3-11.0)
[2023-01-18 13:38] LABS: BILIRUBIN,DIRECT 0.1 mg/dL (0.0-0.2); BILIRUBIN,TOTAL 0.2 mg/dL (0.2-1.0); CALCIUM, SERUM 8.5 mg/dL (8.5-10.1); CREATININE 0.6 mg/dL (0.6-1.3); POTASSIUM 4.5 mmol/L (3.5-5.1); TOTAL PROTEIN, SERUM 7.7 g/dL (6.4-8.2)
[2023-01-18] MEDS ORDERED: MIDO5TAB4 GT (14:06)
[2023-01-18] MEDS ORDERED: FERR300L GT (14:06)
[2023-01-18] MEDS ORDERED: CRAN425C6 GT (14:06)
[2023-01-18] MEDS ORDERED: COLL30OI TP (14:06)
[2023-01-18] MEDS ORDERED: ALBU18HF2 IH (14:06)
[2023-01-18] MEDS ORDERED: LEVE100S GT (14:06)
[2023-01-18] MEDS ORDERED: POVI3780 TP (14:06)
[2023-01-18] MEDS ORDERED: NUT.237L31 GT (14:06)
[2023-01-18] MEDS ORDERED: TRIA80CR12 TP (14:06)
[2023-01-18] MEDS ORDERED: CALC1TAB30 GT (14:06)
[2023-01-18] MEDS ORDERED: INSU100V3 SQ (14:06)
[2023-01-18] MEDS ORDERED: ASCO-352 GT (14:06)
[2023-01-18] MEDS ORDERED: PHEN125O3 GT (14:06)
[2023-01-18] MEDS ORDERED: PANT40SU2 GT (14:06)
[2023-01-18 14:10] LABS: ALBUMIN 1.4 g/dL (3.4-5.0)
[2023-01-18] MEDS ORDERED: Z GUARD REMEDY 4 OZ OINT TP PRN (16:30)
[2023-01-18] MEDS ORDERED: ALBUTEROL FS 2.5 MG/3 ML VIAL.NEB NEB PRN (16:30)
[2023-01-18] MEDS ORDERED: MAGNESIUM HYDROXIDE 30 ML UDC PO PRN (16:30)
[2023-01-18] MEDS ORDERED: ONDANSETRON HCL/PF 4 MG/2 ML VIAL IVP PRN (16:30)
[2023-01-18] MEDS ORDERED: ZOLPIDEM TARTRATE 5 MG TABLET PO PRN (16:30)
[2023-01-18] MEDS ORDERED: BISACODYL SUPP (10 MG) 10 MG/SUPP.RECT SUPP.RECT RC PRN (16:30)
[2023-01-18] MEDS ORDERED: GLUCERNA 1.5 1,000 ML BOTTLE GT SCH (16:30)
[2023-01-18] MEDS ORDERED: MAG HYDROX/AL HYDROX/SIMETH 30 ML UDC PO PRN (16:30)
[2023-01-18] MEDS ORDERED: Medication Not On Formulary EA (Cranberry Extract (Cranberry) 850 MG) GT SCH (17:00)
[2023-01-18] MEDS: ASCORBIC ACID 500 MG TABLET GT SCH (17:30)
[2023-01-18] MEDS: FERROUS SULFATE UDC 300 MG/5 ML UDC GT SCH (17:30)
[2023-01-18] MEDS: IV NS 0.9% 1,000 ML IV PRN (17:31)
[2023-01-18] MEDS ORDERED: DEXTROSE 50%-WATER 50 ML DISP.SYRIN IV PRN (18:00)
[2023-01-18] MEDS: BLOOD SUGAR DIAGNOSTIC 1 EACH STRIP IN SCH ×2 (18:23→23:15)
[2023-01-18 20:00] VITALS: BP 122/71
[2023-01-18] MEDS: VANCOMYCIN 1 GM in IV D5W 250ml IV SCH (20:11)
[2023-01-18] MEDS: PIPERACILLIN /TAZOBACTAM 3.375 G in IV D5W 50 ML IV SCH ×2 (20:11→23:17)
[2023-01-18] MEDS: ALBUTEROL FS 2.5 MG/3 ML VIAL.NEB NEB SCH (20:39)
[2023-01-18] MEDS: MIDODRINE HCL (5MG) 5 MG TABLET GT SCH (21:00)
[2023-01-18] MEDS: VALPROIC ACID 250 MG/5 ML UDC GT SCH (21:24)
[2023-01-18] MEDS: CHLORHEXIDINE GLUCONATE 15 ML UDC MM SCH (21:24)
[2023-01-18] MEDS: LEVETIRACETAM SOL (5 ML) 100 MG/ML UDC GT SCH (21:24)
[2023-01-18] MEDS: INSULIN REGULAR, HUMAN 100 UNIT/ML 3 ML VIAL SQ PRN (23:15)
[2023-01-19] VITALS: BP 112/67
[2023-01-19] MEDS: ALBUTEROL FS 2.5 MG/3 ML VIAL.NEB NEB SCH ×4 (01:36→19:49)
[2023-01-19] MEDS: VANCOMYCIN 1 GM in IV D5W 250ml IV SCH ×3 (02:16→18:21)
[2023-01-19 04:00] VITALS: BP 120/75
[2023-01-19] MEDS: VALPROIC ACID 250 MG/5 ML UDC GT SCH ×3 (04:27→21:40)
[2023-01-19] MEDS: MIDODRINE HCL (5MG) 5 MG TABLET GT SCH ×3 (04:28→21:44)
[2023-01-19] MEDS: PIPERACILLIN /TAZOBACTAM 3.375 G in IV D5W 50 ML IV SCH ×3 (05:04→17:41)
[2023-01-19] MEDS: INSULIN REGULAR, HUMAN 100 UNIT/ML 3 ML VIAL SQ PRN ×3 (05:13→18:01)
[2023-01-19] MEDS ORDERED: VANCOMYCIN 1 GM in IV D5W 250ml IV SCH (06:00)
[2023-01-19] MEDS: BLOOD SUGAR DIAGNOSTIC 1 EACH STRIP IN SCH ×3 (06:01→18:00)
[2023-01-19] MEDS ORDERED: ZOLPIDEM TARTRATE 5 MG TABLET GT PRN (06:51)
[2023-01-19 07:05] LABS: BASOPHILS # (AUTO) 0.1 K/uL (0.0-0.2); BASOPHILS % (AUTO) 0.7 % (0.0-2.0); EOSINOPHILS % (AUTO) 4.3 % (0.0-6.0); HEMATOCRIT 24 % (39-51); HEMOGLOBIN 7.7 g/dL (13.5-17.5); LYMPHOCYTES % (AUTO) 11.5 % (20.0-44.0); MEAN CORPUSCULAR HGB CONC 32 g/dl (31.0-36.0); MEAN CORPUSCULAR VOLUME 101 fL (80-96); MONOCYTES # (AUTO) 0.8 K/uL (0.1-1.30); MONOCYTES % (AUTO) 9.6 % (2.0-12.0); NEUTROPHILS # (AUTO) 6.5 K/uL (1.8-8.9); NEUTROPHILS % (AUTO) 73.9 % (43.0-81.0); PLATELET COUNT (AUTO) 563 K/uL (150-450); RED BLOOD CELL COUNT(AUTO) 2.41 MIL/uL (4.5-6.0); WHITE BLOOD COUNT (AUTO) 8.8 K/uL (4.3-11.0)
[2023-01-19 07:14] LABS: CALCIUM, SERUM 8.2 mg/dL (8.5-10.1); CREATININE 0.6 mg/dL (0.6-1.3); MAGNESIUM 1.9 mg/dL (1.8-2.4); PHOSPHORUS 3.2 mg/dL (2.5-4.9); POTASSIUM 4.2 mmol/L (3.5-5.1)
[2023-01-19 08:00] VITALS: BP 119/70
[2023-01-19] MEDS: PROSOURCE / PROSTAT (PYXIS) 30 ML UDC GT SCH ×2 (09:00→17:00)
[2023-01-19] MEDS: CHLORHEXIDINE GLUCONATE 15 ML UDC MM SCH ×2 (09:55→21:39)
[2023-01-19] MEDS: CALCIUM CARB 600MG /VIT D 1 EACH TABLET GT SCH (09:55)
[2023-01-19] MEDS: LEVETIRACETAM SOL (5 ML) 100 MG/ML UDC GT SCH ×2 (09:55→21:41)
[2023-01-19] MEDS: PANTOPRAZOLE 40 MG/PACK PACK GT SCH (09:55)
[2023-01-19] MEDS: PHENYTOIN SUSP UDC 100 MG/4 ML UDC GT SCH (09:55)
[2023-01-19 12:00] VITALS: BP 113/61
[2023-01-19 16:00] VITALS: BP 102/66
[2023-01-19] MEDS: FERROUS SULFATE UDC 300 MG/5 ML UDC GT SCH (17:37)
[2023-01-19] MEDS: MULTIVIT W/MINERALS 1 TAB TABLET GT SCH (17:37)
[2023-01-19] MEDS: ASCORBIC ACID 500 MG TABLET GT SCH (17:37)
[2023-01-19 20:00] VITALS: BP 115/58
[2023-01-19] MEDS: THERAHONEY GEL 1.5 OZ TUBE TP SCH (22:30)
[2023-01-20] VITALS: BP 121/66
[2023-01-20] MEDS: BLOOD SUGAR DIAGNOSTIC 1 EACH STRIP IN SCH ×4 (00:26→18:10)
[2023-01-20] MEDS: PIPERACILLIN /TAZOBACTAM 3.375 G in IV D5W 50 ML IV SCH ×4 (00:26→17:39)
[2023-01-20] MEDS: INSULIN REGULAR, HUMAN 100 UNIT/ML 3 ML VIAL SQ PRN ×3 (00:29→23:59)
[2023-01-20] MEDS: IV NS 0.9% 1,000 ML IV PRN (00:34)
[2023-01-20] MEDS: ALBUTEROL FS 2.5 MG/3 ML VIAL.NEB NEB SCH ×4 (01:56→19:39)
[2023-01-20 04:00] VITALS: BP 136/78
[2023-01-20] MEDS: MIDODRINE HCL (5MG) 5 MG TABLET GT SCH ×3 (05:00→21:35)
[2023-01-20] MEDS: VALPROIC ACID 250 MG/5 ML UDC GT SCH ×3 (05:32→21:17)
[2023-01-20] MEDS ORDERED: VANCOMYCIN 1 GM in IV D5W 250ml IV SCH (06:00)
[2023-01-20 06:54] LABS: BASOPHILS # (AUTO) 0.1 K/uL (0.0-0.2); BASOPHILS % (AUTO) 0.8 % (0.0-2.0); EOSINOPHILS % (AUTO) 7.8 % (0.0-6.0); HEMATOCRIT 23 % (39-51); HEMOGLOBIN 7.6 g/dL (13.5-17.5); LYMPHOCYTES # (AUTO) 0.8 K/uL (0.8-4.8); LYMPHOCYTES % (AUTO) 8.8 % (20.0-44.0); MEAN CORPUSCULAR HGB CONC 33 g/dl (31.0-36.0); MEAN CORPUSCULAR VOLUME 100 fL (80-96); MONOCYTES % (AUTO) 11.6 % (2.0-12.0); NEUTROPHILS # (AUTO) 6.3 K/uL (1.8-8.9); PLATELET COUNT (AUTO) 454 K/uL (150-450); RED BLOOD CELL COUNT(AUTO) 2.32 MIL/uL (4.5-6.0); WHITE BLOOD COUNT (AUTO) 8.9 K/uL (4.3-11.0)
[2023-01-20 07:19] LABS: CALCIUM, SERUM 8.2 mg/dL (8.5-10.1); CREATININE 0.8 mg/dL (0.6-1.3); POTASSIUM 4.2 mmol/L (3.5-5.1)
[2023-01-20 08:00] VITALS: BP 115/68
[2023-01-20] MEDS: LEVETIRACETAM SOL (5 ML) 100 MG/ML UDC GT SCH ×2 (09:46→21:16)
[2023-01-20] MEDS: CALCIUM CARB 600MG /VIT D 1 EACH TABLET GT SCH (09:46)
[2023-01-20] MEDS: PROSOURCE / PROSTAT (PYXIS) 30 ML UDC GT SCH ×2 (09:47→16:45)
[2023-01-20] MEDS: PHENYTOIN SUSP UDC 100 MG/4 ML UDC GT SCH (09:47)
[2023-01-20] MEDS: PANTOPRAZOLE 40 MG/PACK PACK GT SCH (09:47)
[2023-01-20] MEDS: DAKINS HALF STRENGTH (0.25%) 480 ML BOTTLE TOP SCH (09:48)
[2023-01-20] MEDS: THERAHONEY GEL 1.5 OZ TUBE TP SCH (09:49)
[2023-01-20] MEDS: CHLORHEXIDINE GLUCONATE 15 ML UDC MM SCH ×2 (09:49→21:16)
[2023-01-20] MEDS ORDERED: GLUCERNA 1.2 1,000 ML BOTTLE NG SCH (11:00)
[2023-01-20 12:00] VITALS: BP 109/72
[2023-01-20 16:00] VITALS: BP 101/72
[2023-01-20] MEDS: FERROUS SULFATE UDC 300 MG/5 ML UDC GT SCH (17:38)
[2023-01-20] MEDS: MULTIVIT W/MINERALS 1 TAB TABLET GT SCH (17:39)
[2023-01-20] MEDS: ASCORBIC ACID 500 MG TABLET GT SCH (17:39)
[2023-01-20 20:00] VITALS: BP 99/66
[2023-01-21] VITALS: BP 102/58
[2023-01-21] MEDS: BLOOD SUGAR DIAGNOSTIC 1 EACH STRIP IN SCH ×4 (00:03→17:34)
[2023-01-21] MEDS: PIPERACILLIN /TAZOBACTAM 3.375 G in IV D5W 50 ML IV SCH ×2 (00:03→05:44)
[2023-01-21] MEDS: IV NS 0.9% 1,000 ML IV PRN ×2 (00:30→14:15)
[2023-01-21] MEDS: ALBUTEROL FS 2.5 MG/3 ML VIAL.NEB NEB SCH ×4 (01:16→19:53)
[2023-01-21 04:00] VITALS: BP 101/54
[2023-01-21] MEDS: VALPROIC ACID 250 MG/5 ML UDC GT SCH ×3 (05:45→20:39)
[2023-01-21] MEDS: MIDODRINE HCL (5MG) 5 MG TABLET GT SCH ×3 (05:45→20:55)
[2023-01-21] MEDS: INSULIN REGULAR, HUMAN 100 UNIT/ML 3 ML VIAL SQ PRN ×3 (06:00→17:37)
[2023-01-21 07:35] LABS: BASOPHILS % (AUTO) 0.4 % (0.0-2.0); EOSINOPHILS % (AUTO) 7.4 % (0.0-6.0); HEMATOCRIT 22 % (39-51); HEMOGLOBIN 7.1 g/dL (13.5-17.5); LYMPHOCYTES # (AUTO) 0.7 K/uL (0.8-4.8); LYMPHOCYTES % (AUTO) 7.8 % (20.0-44.0); MEAN CORPUSCULAR HGB CONC 33 g/dl (31.0-36.0); MEAN CORPUSCULAR VOLUME 100 fL (80-96); MONOCYTES # (AUTO) 0.8 K/uL (0.1-1.30); MONOCYTES % (AUTO) 9.2 % (2.0-12.0); NEUTROPHILS # (AUTO) 6.8 K/uL (1.8-8.9); NEUTROPHILS % (AUTO) 75.2 % (43.0-81.0); PLATELET COUNT (AUTO) 468 K/uL (150-450); RED BLOOD CELL COUNT(AUTO) 2.17 MIL/uL (4.5-6.0)
[2023-01-21 07:57] LABS: CALCIUM, SERUM 8.1 mg/dL (8.5-10.1); POTASSIUM 3.6 mmol/L (3.5-5.1)
[2023-01-21 08:00] VITALS: BP 121/68
[2023-01-21] MEDS: DAKINS HALF STRENGTH (0.25%) 480 ML BOTTLE TOP SCH (09:18)
[2023-01-21] MEDS: PROSOURCE / PROSTAT (PYXIS) 30 ML UDC GT SCH ×2 (09:18→16:23)
[2023-01-21] MEDS: THERAHONEY GEL 1.5 OZ TUBE TP SCH (09:18)
[2023-01-21] MEDS: PANTOPRAZOLE 40 MG/PACK PACK GT SCH (09:24)
[2023-01-21] MEDS: LEVETIRACETAM SOL (5 ML) 100 MG/ML UDC GT SCH ×2 (09:24→20:40)
[2023-01-21] MEDS: CHLORHEXIDINE GLUCONATE 15 ML UDC MM SCH ×2 (09:24→20:40)
[2023-01-21] MEDS: PHENYTOIN SUSP UDC 100 MG/4 ML UDC GT SCH (09:47)
[2023-01-21] MEDS: CALCIUM CARB 600MG /VIT D 1 EACH TABLET GT SCH (09:49)
[2023-01-21 12:00] VITALS: BP 115/75
[2023-01-21] MEDS: PIPERACILLIN /TAZOBACTAM 3.375 G in IV D5W 100 ML IV SCH ×2 (13:59→20:39)
[2023-01-21 16:00] VITALS: BP 135/67
[2023-01-21] MEDS: FERROUS SULFATE UDC 300 MG/5 ML UDC GT SCH (17:26)
[2023-01-21] MEDS: MULTIVIT W/MINERALS 1 TAB TABLET GT SCH (17:26)
[2023-01-21] MEDS: ASCORBIC ACID 500 MG TABLET GT SCH (17:27)
[2023-01-21] MEDS: GLUCERNA 1.2 1,000 ML BOTTLE GT PRN (19:11)
[2023-01-21 20:00] VITALS: BP 122/40
[2023-01-22] VITALS (9 sets, daily range): BP systolic 104–127; BP diastolic 43–71
[2023-01-22] MEDS: BLOOD SUGAR DIAGNOSTIC 1 EACH STRIP IN SCH ×4 (00:41→18:32)
[2023-01-22] MEDS: INSULIN REGULAR, HUMAN 100 UNIT/ML 3 ML VIAL SQ PRN ×2 (00:45→17:48)
[2023-01-22] MEDS: ACETAMINOPHEN 325 MG TABLET PO PRN (01:49)
[2023-01-22] MEDS: ALBUTEROL FS 2.5 MG/3 ML VIAL.NEB NEB SCH ×4 (01:53→19:47)
[2023-01-22] MEDS: IV NS 0.9% 1,000 ML IV PRN (03:59)
[2023-01-22] MEDS: VALPROIC ACID 250 MG/5 ML UDC GT SCH ×3 (04:43→21:35)
[2023-01-22] MEDS: PIPERACILLIN /TAZOBACTAM 3.375 G in IV D5W 100 ML IV SCH ×3 (04:43→21:35)
[2023-01-22] MEDS: MIDODRINE HCL (5MG) 5 MG TABLET GT SCH ×3 (04:44→21:36)
[2023-01-22 07:51] LABS: BASOPHILS % (AUTO) 0.6 % (0.0-2.0); EOSINOPHILS % (AUTO) 9.9 % (0.0-6.0); HEMATOCRIT 21 % (39-51); LYMPHOCYTES # (AUTO) 0.9 K/uL (0.8-4.8); LYMPHOCYTES % (AUTO) 11.6 % (20.0-44.0); MEAN CORPUSCULAR HGB CONC 33 g/dl (31.0-36.0); MEAN CORPUSCULAR VOLUME 100 fL (80-96); MONOCYTES # (AUTO) 0.8 K/uL (0.1-1.30); MONOCYTES % (AUTO) 10.4 % (2.0-12.0); NEUTROPHILS # (AUTO) 5.4 K/uL (1.8-8.9); NEUTROPHILS % (AUTO) 67.5 % (43.0-81.0); PLATELET COUNT (AUTO) 419 K/uL (150-450); RED BLOOD CELL COUNT(AUTO) 2.06 MIL/uL (4.5-6.0)
[2023-01-22 07:54] LABS: HEMOGLOBIN 6.7 g/dL (13.5-17.5)
[2023-01-22 08:05] LABS: CALCIUM, SERUM 8.2 mg/dL (8.5-10.1); CREATININE 1.1 mg/dL (0.6-1.3); POTASSIUM 3.9 mmol/L (3.5-5.1)
[2023-01-22] MEDS: LEVETIRACETAM SOL (5 ML) 100 MG/ML UDC GT SCH ×2 (08:35→21:36)
[2023-01-22] MEDS: PANTOPRAZOLE 40 MG/PACK PACK GT SCH (08:35)
[2023-01-22] MEDS: CHLORHEXIDINE GLUCONATE 15 ML UDC MM SCH ×2 (08:36→21:35)
[2023-01-22] MEDS: CALCIUM CARB 600MG /VIT D 1 EACH TABLET GT SCH (08:36)
[2023-01-22] MEDS: PHENYTOIN SUSP UDC 100 MG/4 ML UDC GT SCH (08:36)
[2023-01-22] MEDS: THERAHONEY GEL 1.5 OZ TUBE TP SCH (08:45)
[2023-01-22] MEDS: DAKINS HALF STRENGTH (0.25%) 480 ML BOTTLE TOP SCH (08:45)
[2023-01-22] MEDS: PROSOURCE / PROSTAT (PYXIS) 30 ML UDC GT SCH ×2 (08:45→17:05)
[2023-01-22 13:52] LABS: BASOPHILS % (MANUAL) 0 % (0.0-2.0); EOSINOPHILS % (MANUAL) 6 % (0-4); LYMPHOCYTES % (MANUAL) 12 % (16-48); MONOCYTES % (MANUAL) 11 % (0-11.0); NEUTROPHILS % (MANUAL) 71 (42-76)
[2023-01-22] MEDS: GLUCERNA 1.2 1,000 ML BOTTLE GT PRN (16:56)
[2023-01-22] MEDS: MULTIVIT W/MINERALS 1 TAB TABLET GT SCH (17:04)
[2023-01-22] MEDS: FERROUS SULFATE UDC 300 MG/5 ML UDC GT SCH (17:04)
[2023-01-22] MEDS: ASCORBIC ACID 500 MG TABLET GT SCH (17:05)
[2023-01-22 17:14] LABS: BILIRUBIN,URINE NEGATIVE (NEGATIVE); COLOR,URINE YELLOW (YELLOW); LEUKOCYTE ESTERASE ,URINE NEGATIVE (NEGATIVE); NITRITE, URINE NEGATIVE (NEGATIVE); PH,URINE 5.5 (5.0-8.0); PROTEIN,URINE TRACE mg/dl (NEGATIVE); UGLUCOSE NEGATIVE (NEGATIVE); UROBILINOGEN,URINE 0.2 EU/dL (0.2)
[2023-01-22 17:24] LABS: BACTERIA,URINE None seen /HPF (None Seen); RBC,URINE 0-2 /HPF (0-2); WBC,URINE 0-2 /HPF (0-3)
[2023-01-22 17:25] LABS: SQUAMOUS EPITHELIAL CELL,UR 0-2 /HPF (None Seen); YEAST,URINE Moderate /HPF (None Seen)
[2023-01-22 20:07] LABS: BASOPHILS # (AUTO) 0.1 K/uL (0.0-0.2); BASOPHILS % (AUTO) 0.7 % (0.0-2.0); EOSINOPHILS % (AUTO) 10.7 % (0.0-6.0); HEMATOCRIT 26 % (39-51); HEMOGLOBIN 8.6 g/dL (13.5-17.5); LYMPHOCYTES # (AUTO) 0.9 K/uL (0.8-4.8); LYMPHOCYTES % (AUTO) 9.2 % (20.0-44.0); MEAN CORPUSCULAR HGB CONC 33 g/dl (31.0-36.0); MEAN CORPUSCULAR VOLUME 95 fL (80-96); MONOCYTES # (AUTO) 0.8 K/uL (0.1-1.30); MONOCYTES % (AUTO) 8.3 % (2.0-12.0); NEUTROPHILS # (AUTO) 6.6 K/uL (1.8-8.9); NEUTROPHILS % (AUTO) 71.1 % (43.0-81.0); PLATELET COUNT (AUTO) 422 K/uL (150-450); RED BLOOD CELL COUNT(AUTO) 2.77 MIL/uL (4.5-6.0); WHITE BLOOD COUNT (AUTO) 9.3 K/uL (4.3-11.0)
[2023-01-23] VITALS: BP 125/69
[2023-01-23] MEDS: ALBUTEROL FS 2.5 MG/3 ML VIAL.NEB NEB SCH ×4 (00:48→19:35)
[2023-01-23] MEDS: ACETAMINOPHEN 325 MG TABLET PO PRN (01:55)
[2023-01-23] MEDS: IV NS 0.9% 1,000 ML IV PRN (03:38)
[2023-01-23 04:00] VITALS: BP 117/68
[2023-01-23] MEDS: MIDODRINE HCL (5MG) 5 MG TABLET GT SCH ×3 (05:00→21:00)
[2023-01-23] MEDS: VALPROIC ACID 250 MG/5 ML UDC GT SCH ×3 (05:00→21:10)
[2023-01-23] MEDS: PIPERACILLIN /TAZOBACTAM 3.375 G in IV D5W 100 ML IV SCH ×3 (05:36→21:10)
[2023-01-23] MEDS: BLOOD SUGAR DIAGNOSTIC 1 EACH STRIP IN SCH ×5 (06:00→23:26)
[2023-01-23 06:54] LABS: BASOPHILS # (AUTO) 0.1 K/uL (0.0-0.2); BASOPHILS % (AUTO) 0.7 % (0.0-2.0); HEMATOCRIT 25 % (39-51); HEMOGLOBIN 8.1 g/dL (13.5-17.5); LYMPHOCYTES # (AUTO) 1.1 K/uL (0.8-4.8); LYMPHOCYTES % (AUTO) 12.3 % (20.0-44.0); MEAN CORPUSCULAR HGB CONC 33 g/dl (31.0-36.0); MEAN CORPUSCULAR VOLUME 96 fL (80-96); MONOCYTES # (AUTO) 0.7 K/uL (0.1-1.30); MONOCYTES % (AUTO) 7.9 % (2.0-12.0); NEUTROPHILS # (AUTO) 5.9 K/uL (1.8-8.9); NEUTROPHILS % (AUTO) 69.1 % (43.0-81.0); PLATELET COUNT (AUTO) 383 K/uL (150-450); RED BLOOD CELL COUNT(AUTO) 2.57 MIL/uL (4.5-6.0); WHITE BLOOD COUNT (AUTO) 8.5 K/uL (4.3-11.0)
[2023-01-23] MEDS ORDERED: ANESTHESIA TRAY IN PYXIS 1 EA TRAY MC ONE (06:58)
[2023-01-23 07:22] LABS: CALCIUM, SERUM 8.2 mg/dL (8.5-10.1); CREATININE 0.9 mg/dL (0.6-1.3); POTASSIUM 3.8 mmol/L (3.5-5.1)
[2023-01-23] MEDS ORDERED: LIDOCAINE HCL/MPF 1% 30 ML VIAL IJ ONE (07:43)
[2023-01-23] MEDS ORDERED: BUPIVACAINE 0.25% 75 MG/30 ML VIAL ONE (07:43)
[2023-01-23 08:00] VITALS: BP 124/72
[2023-01-23] MEDS: CALCIUM CARB 600MG /VIT D 1 EACH TABLET GT SCH (10:14)
[2023-01-23] MEDS: CHLORHEXIDINE GLUCONATE 15 ML UDC MM SCH ×2 (10:14→21:11)
[2023-01-23] MEDS: LEVETIRACETAM SOL (5 ML) 100 MG/ML UDC GT SCH ×2 (10:14→21:11)
[2023-01-23] MEDS: PANTOPRAZOLE 40 MG/PACK PACK GT SCH (10:14)
[2023-01-23] MEDS: PROSOURCE / PROSTAT (PYXIS) 30 ML UDC GT SCH ×2 (10:16→16:47)
[2023-01-23] MEDS: DAKINS HALF STRENGTH (0.25%) 480 ML BOTTLE TOP SCH (10:19)
[2023-01-23] MEDS: THERAHONEY GEL 1.5 OZ TUBE TP SCH (10:20)
[2023-01-23] MEDS: VANCOMYCIN 500 MG in IV D5W 100ml IV SCH ×2 (10:22→21:13)
[2023-01-23] MEDS: PHENYTOIN SUSP UDC 100 MG/4 ML UDC GT SCH (10:58)
[2023-01-23 12:00] VITALS: BP 138/78
[2023-01-23] MEDS: INSULIN REGULAR, HUMAN 100 UNIT/ML 3 ML VIAL SQ PRN ×2 (13:20→17:04)
[2023-01-23 16:00] VITALS: BP 132/72
[2023-01-23] MEDS: FERROUS SULFATE UDC 300 MG/5 ML UDC GT SCH (17:17)
[2023-01-23] MEDS: MULTIVIT W/MINERALS 1 TAB TABLET GT SCH (17:18)
[2023-01-23] MEDS: ASCORBIC ACID 500 MG TABLET GT SCH (17:18)
[2023-01-23] MEDS: GLUCERNA 1.2 1,000 ML BOTTLE GT PRN (18:27)
[2023-01-23 20:00] VITALS: BP 152/90
[2023-01-24] VITALS: BP 136/78
[2023-01-24] MEDS: ALBUTEROL FS 2.5 MG/3 ML VIAL.NEB NEB SCH ×4 (01:51→19:35)
[2023-01-24 04:00] VITALS: BP 133/76
[2023-01-24] MEDS: IV NS 0.9% 1,000 ML IV PRN (04:39)
[2023-01-24] MEDS: VALPROIC ACID 250 MG/5 ML UDC GT SCH ×3 (04:46→20:54)
[2023-01-24] MEDS: PIPERACILLIN /TAZOBACTAM 3.375 G in IV D5W 100 ML IV SCH ×3 (04:47→20:57)
[2023-01-24] MEDS: MIDODRINE HCL (5MG) 5 MG TABLET GT SCH ×3 (05:00→20:55)
[2023-01-24] MEDS: BLOOD SUGAR DIAGNOSTIC 1 EACH STRIP IN SCH ×3 (05:32→18:33)
[2023-01-24] MEDS: INSULIN REGULAR, HUMAN 100 UNIT/ML 3 ML VIAL SQ PRN ×3 (05:32→18:35)
[2023-01-24 06:33] LABS: BASOPHILS # (AUTO) 0.1 K/uL (0.0-0.2); BASOPHILS % (AUTO) 0.6 % (0.0-2.0); EOSINOPHILS % (AUTO) 6.8 % (0.0-6.0); HEMATOCRIT 24 % (39-51); HEMOGLOBIN 7.8 g/dL (13.5-17.5); LYMPHOCYTES # (AUTO) 1.1 K/uL (0.8-4.8); LYMPHOCYTES % (AUTO) 11.3 % (20.0-44.0); MEAN CORPUSCULAR HGB CONC 33 g/dl (31.0-36.0); MEAN CORPUSCULAR VOLUME 95 fL (80-96); MONOCYTES # (AUTO) 0.9 K/uL (0.1-1.30); MONOCYTES % (AUTO) 9.1 % (2.0-12.0); NEUTROPHILS # (AUTO) 6.8 K/uL (1.8-8.9); NEUTROPHILS % (AUTO) 72.2 % (43.0-81.0); PLATELET COUNT (AUTO) 402 K/uL (150-450); RED BLOOD CELL COUNT(AUTO) 2.46 MIL/uL (4.5-6.0); WHITE BLOOD COUNT (AUTO) 9.4 K/uL (4.3-11.0)
[2023-01-24 06:48] LABS: CALCIUM, SERUM 8.2 mg/dL (8.5-10.1); CREATININE 0.8 mg/dL (0.6-1.3); POTASSIUM 3.7 mmol/L (3.5-5.1)
[2023-01-24 08:00] VITALS: BP 110/42
[2023-01-24] MEDS: LEVETIRACETAM SOL (5 ML) 100 MG/ML UDC GT SCH ×2 (08:48→20:54)
[2023-01-24] MEDS: PANTOPRAZOLE 40 MG/PACK PACK GT SCH (08:48)
[2023-01-24] MEDS: PROSOURCE / PROSTAT (PYXIS) 30 ML UDC GT SCH ×2 (08:48→18:12)
[2023-01-24] MEDS: CHLORHEXIDINE GLUCONATE 15 ML UDC MM SCH ×2 (08:48→21:17)
[2023-01-24] MEDS: PHENYTOIN SUSP UDC 100 MG/4 ML UDC GT SCH (08:57)
[2023-01-24] MEDS: CALCIUM CARB 600MG /VIT D 1 EACH TABLET GT SCH (08:57)
[2023-01-24] MEDS: DAKINS HALF STRENGTH (0.25%) 480 ML BOTTLE TOP SCH (09:14)
[2023-01-24] MEDS: THERAHONEY GEL 1.5 OZ TUBE TP SCH (09:14)
[2023-01-24] MEDS: VANCOMYCIN 500 MG in IV D5W 100ml IV SCH ×2 (09:34→21:54)
[2023-01-24 12:00] VITALS: BP 101/65
[2023-01-24 16:00] VITALS: BP 111/57
[2023-01-24] MEDS: FERROUS SULFATE UDC 300 MG/5 ML UDC GT SCH (18:10)
[2023-01-24] MEDS: MULTIVIT W/MINERALS 1 TAB TABLET GT SCH (18:10)
[2023-01-24] MEDS: ASCORBIC ACID 500 MG TABLET GT SCH (18:27)
[2023-01-24 20:00] VITALS: BP 125/73
[2023-01-24] MEDS: GLUCERNA 1.2 1,000 ML BOTTLE GT PRN (22:46)
[2023-01-25] VITALS: BP 146/74
[2023-01-25] MEDS: BLOOD SUGAR DIAGNOSTIC 1 EACH STRIP IN SCH ×4 (00:39→18:46)
[2023-01-25] MEDS: INSULIN REGULAR, HUMAN 100 UNIT/ML 3 ML VIAL SQ PRN ×4 (00:39→18:47)
[2023-01-25] MEDS: ALBUTEROL FS 2.5 MG/3 ML VIAL.NEB NEB SCH ×4 (02:21→19:37)
[2023-01-25 04:00] VITALS: BP 112/59
[2023-01-25] MEDS: VALPROIC ACID 250 MG/5 ML UDC GT SCH ×3 (04:19→21:00)
[2023-01-25] MEDS: MIDODRINE HCL (5MG) 5 MG TABLET GT SCH ×3 (04:19→21:00)
[2023-01-25] MEDS: PIPERACILLIN /TAZOBACTAM 3.375 G in IV D5W 100 ML IV SCH ×3 (04:25→21:00)
[2023-01-25 06:52] LABS: HEMOGLOBIN 8.1 g/dL (13.5-17.5)
[2023-01-25 07:07] LABS: CALCIUM, SERUM 8.2 mg/dL (8.5-10.1); CREATININE 0.8 mg/dL (0.6-1.3); POTASSIUM 3.7 mmol/L (3.5-5.1)
[2023-01-25 08:00] VITALS: BP 114/92
[2023-01-25] MEDS: PHENYTOIN SUSP UDC 100 MG/4 ML UDC GT SCH (08:14)
[2023-01-25] MEDS: CALCIUM CARB 600MG /VIT D 1 EACH TABLET GT SCH (08:14)
[2023-01-25] MEDS: PANTOPRAZOLE 40 MG/PACK PACK GT SCH (08:14)
[2023-01-25] MEDS: LEVETIRACETAM SOL (5 ML) 100 MG/ML UDC GT SCH ×2 (08:14→21:01)
[2023-01-25] MEDS: CHLORHEXIDINE GLUCONATE 15 ML UDC MM SCH ×2 (08:14→21:05)
[2023-01-25] MEDS: DAKINS HALF STRENGTH (0.25%) 480 ML BOTTLE TOP SCH (08:15)
[2023-01-25] MEDS: THERAHONEY GEL 1.5 OZ TUBE TP SCH (08:15)
[2023-01-25] MEDS: PROSOURCE / PROSTAT (PYXIS) 30 ML UDC GT SCH ×2 (08:16→17:26)
[2023-01-25] MEDS: VANCOMYCIN 500 MG in IV D5W 100ml IV SCH (10:00)
[2023-01-25 12:00] VITALS: BP 159/75
[2023-01-25] MEDS ORDERED: VANCOMYCIN 1 GM in IV D5W 250ml IV SCH (14:00)
[2023-01-25 16:00] VITALS: BP 143/60
[2023-01-25] MEDS: IV NS 0.9% 1,000 ML IV PRN (16:00)
[2023-01-25] MEDS: MULTIVIT W/MINERALS 1 TAB TABLET GT SCH (17:26)
[2023-01-25] MEDS: FERROUS SULFATE UDC 300 MG/5 ML UDC GT SCH (17:26)
[2023-01-25] MEDS: ASCORBIC ACID 500 MG TABLET GT SCH (17:27)
[2023-01-25 20:00] VITALS: BP 134/81
[2023-01-25] MEDS: GLUCERNA 1.2 1,000 ML BOTTLE GT PRN (21:55)
[2023-01-26] VITALS: BP 120/65
[2023-01-26] MEDS: BLOOD SUGAR DIAGNOSTIC 1 EACH STRIP IN SCH ×4 (00:11→18:02)
[2023-01-26] MEDS: INSULIN REGULAR, HUMAN 100 UNIT/ML 3 ML VIAL SQ PRN ×4 (00:12→18:39)
[2023-01-26] MEDS: ALBUTEROL FS 2.5 MG/3 ML VIAL.NEB NEB SCH ×3 (01:49→13:43)
[2023-01-26 04:00] VITALS: BP 109/66
[2023-01-26] MEDS: PIPERACILLIN /TAZOBACTAM 3.375 G in IV D5W 100 ML IV SCH ×2 (05:26→13:46)
[2023-01-26] MEDS: VALPROIC ACID 250 MG/5 ML UDC GT SCH ×2 (05:26→13:44)
[2023-01-26] MEDS: MIDODRINE HCL (5MG) 5 MG TABLET GT SCH ×2 (05:27→13:44)
[2023-01-26 06:41] LABS: BASOPHILS % (AUTO) 0.5 % (0.0-2.0); EOSINOPHILS % (AUTO) 13.2 % (0.0-6.0); HEMATOCRIT 25 % (39-51); LYMPHOCYTES # (AUTO) 1.2 K/uL (0.8-4.8); LYMPHOCYTES % (AUTO) 14.9 % (20.0-44.0); MEAN CORPUSCULAR HGB CONC 32 g/dl (31.0-36.0); MEAN CORPUSCULAR VOLUME 97 fL (80-96); MONOCYTES # (AUTO) 0.6 K/uL (0.1-1.30); MONOCYTES % (AUTO) 7.5 % (2.0-12.0); NEUTROPHILS # (AUTO) 5.2 K/uL (1.8-8.9); NEUTROPHILS % (AUTO) 63.9 % (43.0-81.0); PLATELET COUNT (AUTO) 448 K/uL (150-450); RED BLOOD CELL COUNT(AUTO) 2.57 MIL/uL (4.5-6.0); WHITE BLOOD COUNT (AUTO) 8.1 K/uL (4.3-11.0)
[2023-01-26 07:42] LABS: CALCIUM, SERUM 8.5 mg/dL (8.5-10.1); CREATININE 0.9 mg/dL (0.6-1.3); POTASSIUM 3.8 mmol/L (3.5-5.1)
[2023-01-26 08:00] VITALS: BP 152/72
[2023-01-26] MEDS: LEVETIRACETAM SOL (5 ML) 100 MG/ML UDC GT SCH (08:36)
[2023-01-26] MEDS: PANTOPRAZOLE 40 MG/PACK PACK GT SCH (08:36)
[2023-01-26] MEDS: CALCIUM CARB 600MG /VIT D 1 EACH TABLET GT SCH (08:36)
[2023-01-26] MEDS: CHLORHEXIDINE GLUCONATE 15 ML UDC MM SCH (08:36)
[2023-01-26] MEDS: DAKINS HALF STRENGTH (0.25%) 480 ML BOTTLE TOP SCH (08:37)
[2023-01-26] MEDS: THERAHONEY GEL 1.5 OZ TUBE TP SCH (08:37)
[2023-01-26] MEDS: PHENYTOIN SUSP UDC 100 MG/4 ML UDC GT SCH (08:38)
[2023-01-26] MEDS: PROSOURCE / PROSTAT (PYXIS) 30 ML UDC GT SCH ×2 (08:41→17:07)
[2023-01-26 12:00] VITALS: BP 135/77
[2023-01-26] MEDS ORDERED: VANCOMYCIN 0.75 GM in IV D5W 250 ML IV SCH (14:00)
[2023-01-26 16:00] VITALS: BP 125/70
[2023-01-26] MEDS: ASCORBIC ACID 500 MG TABLET GT SCH (17:08)
[2023-01-26] MEDS: FERROUS SULFATE UDC 300 MG/5 ML UDC GT SCH (17:08)
[2023-01-26] MEDS: MULTIVIT W/MINERALS 1 TAB TABLET GT SCH (17:08)
== END 2023-01-26 21:27 | DRG 317 ==
LOC: ER 11:59 → MEDSG1 15:31 → TELE1 16:32
PROVIDERS: ADMIT Nurse Practitioner Acute Care; ATTEND Nurse Practitioner Acute Care
PROC: 5A1955Z Respiratory Ventilation, Greater than 96 Consecutive Hours (ICD-10-PCS; principal; 2023-01-18)
PROC: 0W993ZZ Drainage of Right Pleural Cavity, Percutaneous Approach (ICD-10-PCS; 2023-01-20)
PROC: 30233N1 Transfusion of Nonautologous Red Blood Cells into Peripheral Vein, Percutaneous Approach (ICD-10-PCS; 2023-01-22)
PROC: 05H933Z Insertion of Infusion Device into Right Brachial Vein, Percutaneous Approach (ICD-10-PCS; 2023-01-22)
PROC: 0JBR0ZZ Excision of Left Foot Subcutaneous Tissue and Fascia, Open Approach (ICD-10-PCS; 2023-01-23)
PROC: 0KBN0ZZ Excision of Right Hip Muscle, Open Approach (ICD-10-PCS; 2023-01-24)
PROC: 0KBP0ZZ Excision of Left Hip Muscle, Open Approach (ICD-10-PCS; 2023-01-24)
DX: E11.69 Type 2 diabetes mellitus with other specified complication (principal); M86.172 Other acute osteomyelitis, left ankle and foot; G93.41 Metabolic encephalopathy; J90 Pleural effusion, not elsewhere classified; E43 Unspecified severe protein-calorie malnutrition; L89.154 Pressure ulcer of sacral region, stage 4; R64 Cachexia; R53.2 Functional quadriplegia; D68.59 Other primary thrombophilia; J96.10 Chronic respiratory failure, unspecified whether with hypoxia or hypercapnia; E11.621 Type 2 diabetes mellitus with foot ulcer; Z93.0 Tracheostomy status; Z99.11 Dependence on respirator [ventilator] status; Z93.1 Gastrostomy status; R13.10 Dysphagia, unspecified; Z20.822 Contact with and (suspected) exposure to COVID-19; E11.622 Type 2 diabetes mellitus with other skin ulcer; E11.51 Type 2 diabetes mellitus with diabetic peripheral angiopathy without gangrene; L02.612 Cutaneous abscess of left foot; F03.90 Unspecified dementia, unspecified severity, without behavioral disturbance, psychotic disturbance, mood disturbance, and anxiety; G40.909 Epilepsy, unspecified, not intractable, without status epilepticus; E88.09 Other disorders of plasma-protein metabolism, not elsewhere classified; J39.8 Other specified diseases of upper respiratory tract; J98.11 Atelectasis; D63.8 Anemia in other chronic diseases classified elsewhere; M24.571 Contracture, right ankle; M24.572 Contracture, left ankle; Z74.09 Other reduced mobility; Z79.01 Long term (current) use of anticoagulants; Z79.4 Long term (current) use of insulin; Z79.899 Other long term (current) drug therapy; Z79.51 Long term (current) use of inhaled steroids; L97.429 Non-pressure chronic ulcer of left heel and midfoot with unspecified severity; L08.9 Local infection of the skin and subcutaneous tissue, unspecified; E11.65 Type 2 diabetes mellitus with hyperglycemia; R79.89 Other specified abnormal findings of blood chemistry; L97.929 Non-pressure chronic ulcer of unspecified part of left lower leg with unspecified severity; L97.919 Non-pressure chronic ulcer of unspecified part of right lower leg with unspecified severity; L97.419 Non-pressure chronic ulcer of right heel and midfoot with unspecified severity
CPT/HCPCS: 31720; 36415; 71045-TC; 73630-TC; 73700-TC; 80048-TC; 80076-TC; 80202-TC; 81001; 82962-TC; 83735-TC; 84100-TC; 85025-TC; 85027-TC; 85652-TC; 85730-TC; 86140-TC; 86850-TC; 87040-TC; 87081-TC; 87086-TC; 87102-TC; 89051-TC; 94002-TC; 94003-TC; 94760-TC; 94762-TC; 94799-TC; 99082-TC; A4223; A6209; A6253; A6403; C9803; G0378; J0690; J1815; J1953; J2543; J3370; J3490; J7030; J7040; J7050; J7060; P9016